=== PATIENT | male | born 1940 | race Caucasian/White ===

== ENCOUNTER 2022-07-08 22:52 | Emergency (ER) | payer OTHER, MEDICARE ==
[2022-07-08 23:03] VITALS: BP 152/85; PULSE 64; RESP 16; TEMP 98.5; BMI 29.9
[2022-07-08] MEDS ORDERED: DALBAVANCIN HCL 1,500 MG in DEXTROSE 5%-WATER - 500 ML IVPB ONE (23:11)
[2022-07-08] MEDS ORDERED: DALBAVANCIN HCL 500 MG VIAL (RESTRICTED TO ID ONLY) IVPB ONE (23:21)
[2022-07-08 23:22] LABS: HEMOGLOBIN 13.9 G/dL (11.7-16.9); MCH 36.1 pg (25.7-33.7); MCHC 33.8 g/dl (32.0-35.9); MEAN CELL VOLUME 106.7 fl (80-96); MEAN PLT VOLUME 8.8 fl (7.5-11.1); PLATELET COUNT 240.8 10^3/uL (134-434); RBC 3.84 10^6/uL (4.00-5.60); RDW 14.3 % (11.9-15.9); WHITE BLOOD COUNT 8.8 10^3/uL (4.0-10.8)
[2022-07-08 23:38] LABS: CALCIUM 9.3 mg/dl (8.5-10)
[2022-07-08 23:45] LABS: ALBUMIN 4.1 g/dl (3.4-5.0); BILIRUBIN,TOTAL 1.3 mg/dl (0.2-1); TOT PROT 7.1 g/dl (6.4-8.2)
== END 2022-07-09 01:53 | disposition home or self-care (01) ==
LOC: EDBD 22:52 → FER 22:52
PROC: 3E033GC Introduction of Other Therapeutic Substance into Peripheral Vein, Percutaneous Approach (ICD-10-PCS; principal; 2022-07-08)
DX: L03.114 Cellulitis of left upper limb (principal)
CPT/HCPCS: 36415; 80053; 85027; 87040; 99284-25; J0875